=== PATIENT | male | born 1995 | race Caucasian/White ===

== ENCOUNTER 2016-11-02 09:40 | Inpatient (IN) | payer BC, OTHER ==
[2016-11-02 10:14] VITALS: BMI 26.3
[2016-11-02] MEDS ORDERED: MENTHOL/PHENOL 1 EACH UD MM PRN (10:52)
[2016-11-02] MEDS ORDERED: MAGNESIUM HYDROX 2400MG/30ML ORAL SUSPENSION 30 ML CUP PO PRN (10:52)
[2016-11-02] MEDS ORDERED: guaiFENesin/D-METHORPHAN HB 10 ML UNIT-DOSE CUPS PO PRN (10:52)
[2016-11-02] MEDS ORDERED: IBUPROFEN 400 MG TABLET (FP) PO PRN (10:52)
[2016-11-02] MEDS ORDERED: MAGNESIUM CITRATE 300 ML BOTTLE PO PRN (10:52)
[2016-11-02] MEDS ORDERED: MAG HYDROX/AL HYDROX/SIMETH 30 ML UNIT-DOSE CUP PO PRN (10:52)
[2016-11-02] MEDS ORDERED: LOPERAMIDE HCL 2 MG CAPSULE PO PRN (10:52)
[2016-11-02] MEDS ORDERED: ACETAMINOPHEN 325 MG TABLET (FP) PO PRN (10:52)
[2016-11-02] MEDS ORDERED: P-EPHED 60MG/TRIPROLIDI 2.5MG TABLET PO PRN (10:52)
[2016-11-02] MEDS ORDERED: INSULIN ASPART SQ PRN (10:57)
[2016-11-02] MEDS ORDERED: INSULIN SLIDING SCALE (NOVOLOG) 1 VIAL SQ SCH (11:00)
--- NOTE | 2016-11-02 11:07 | HP ---
COWS - Scale Resting Pulse: 1= [place] 81-100 Sweatin= Chills/Flushing Restless Observation: 1= Difficult to Sit Still Pupil Size: 1= Pupils >than Normal Bone or Joint Aches: 2= Severe Diffuse Aches Runny Nose/ Eye Tearin= Runny Nose/Eyes GI Upset > 30mins: 2= Nausea/Diarrhea Tremor Observation: 2= Slight Tremor Visible Yawning Observation: 1= 1-2x During Session Anxiety or Irritability: 2=Irritable/Anxious Goose Flesh Skin: 3=Piloerection COWS Score: 18 CIWA Score - CIWA Score Nausea/Vomitin Muscle Tremors: 4-Moderate,w/Arms Extend Anxiety: 3 Agitation: 4-Moderately Restless Paroxysmal Sweats: 3 Orientation: 0-Oriented Tacttile Disturbances: 0-None Auditory Disturbances: 0-None Visual Disturbances: 0-None Headache: 0-None Present CIWA-Ar Total Score: 17 Admission ROS BHS - HPI Chief Complaint: heroin and xanax withdrawal sx Allergies/Adverse Reactions: Allergies Allergy/AdvReac Type Severity Reaction Status Date / Time No Known Allergies Allergy Verified 11/02/16 10:10 History of Present Illness: 20 yo m recently , has been in detox/rehab before but not at [facility] x10 times last in january h/o opioid and benzodiazepine dependence not on meds , was on suboxone developed cravings on 16mg/day and relapsed 04/2016. Last heroin (sniffs) yesterday and xanax yesterday . no h/o seizures, no DTS - reports hallucinations when he stps his benzodiazepines/xanax in past. PMHx alcohol dependence, has not used since 2015, bipolar do, suicide attempts in past no suicidal ideation at present Exam Limitations: No Limitations - Ebola screening Have you traveled outside of the country in the last 21 days: No Have you had contact with anyone from an Ebola affected area: No Have you been sick,other than usual withdrawal symptoms: No - Review of Systems Constitutional: Chills, Diaphoresis, Loss of Appetite, Malaise, Night Sweats, Changes in sleep, Weakness, Unintentional Wgt. Loss EENT: reports: Nose Congestion Respiratory: reports: No Symptoms reported Cardiac: reports: No Symptoms Reported GI: reports: Constipated, Nausea, Poor Appetite, Poor Fluid Intake, Indigestion , Abdominal cramping : reports: No Symptoms Reported Musculoskeletal: reports: Back Pain, Joint Pain (withdrawal sx), Muscle Pain, Neck Pain Integumentary: reports: Flushing, Sweating Neuro: reports: Tremors, Weakness Endocrine: reports: No Symptoms Reported Hematology: reports: No Symptoms Reported Psychiatric: reports: Judgement Intact, Mood/Affect Appropiate, Orientated x3, Agitated, Anxious, Depressed Other Systems: Reviewed and Negative Patient History - Patient Medical History Hx Anemia: No Hx Asthma: No Hx Chronic Obstructive Pulmonary Disease (COPD): No Hx Cancer: No Hx Cardiac Disorders: No Hx Congestive Heart Failure: No Hx Hypertension: No Hx Hypercholesterolemia: No Hx Pacemaker: No HX Cerebrovascular Accident: No Hx Seizures: No Hx Dementia: No Hx Diabetes: Yes (IDDM) Hx Gastrointestinal Disorders: Yes (acid reflux) Hx Liver Disease: No Hx Genitourinary Disorders: No Hx Sexually Transmitted Disorders: No Hx Renal Disease (ESRD): No Hx Thyroid Disease: No Hx Human Immunodeficiency Virus (HIV): No Hx Hepatitis C: No Hx Depression: Yes Hx Suicide Attempt: Yes (cut left wrist in 2013, no s uicidal ideation at present) Hx Bipolar Disorder: Yes Hx Schizophrenia: No - Patient Surgical History Past Surgical History: Yes Hx Neurologic Surgery: No Hx Cataract Extraction: No Hx Cardiac Surgery: No Hx Lung Surgery: No Hx Breast Surgery: No Hx Breast Biopsy: No Hx Abdominal Surgery: Yes (insulin pump since age 8) Hx Appendectomy: No Hx Cholecystectomy: No Hx Genitourinary Surgery: No Hx Section: No Hx Orthopedic Surgery: No Hx Hysterectomy: No Anesthesia Reaction: No - PPD History Previous Implant?: Yes Implanted On Prior [facility] Admission?: No PPD to be Administered?: Yes - Reproductive History Patient is a Female of Child Bearing Age (11 -55 yrs old): No Patient : No - Smoking Cessation Smoking history: Current every day smoker Have you smoked in the past 12 months: Yes Aproximately how many cigarettes per day: 20 Hx Chewing Tobacco Use: No Initiated information on smoking cessation: Yes 'Breaking Loose' booklet given: 11/02/16 - Substance & Tx. History Hx Alcohol Use: Yes Hx Substance Use: Yes Substance Use Type: Alcohol, Heroin, Opiates, Prescribed, Tranquilizers Hx Substance Use Treatment: Yes (x10 , last time in january) - Substances Abused Heroin Route: Inhalation Frequency: Daily Amount used: 20-22 bags Age of first use: 16 Date of Last Use: 11/01/16 Xanax Route: Oral Frequency: Daily Amount used: 8-10 mg. Age of first use: 14 Date of Last Use: 11/01/16 Alcohol Route: Oral Frequency: No use in 30 days Amount used: 750ml spirits daily Age of first use: 12 Date of Last Use: 02/12/16 Family Disease History - Family Disease History Family History: Unremarkable Other Family History: uncle addictive disorder Admission Physical Exam S - Vital Signs Vital Signs: Vital Signs - 24 hr 11/02/16 10:10 Temperature 97.2 F L Pulse Rate 97 H Respiratory 20 Rate Blood Pressure 141/69 - Physical General Appearance: Yes: Nourished, Appropriately Dressed, Disheveled, Thin, Tremorous, Sweating, Anxious HEENTM: Yes: Hearing grossly Normal, Normocephalic, Normal Voice, CHERYL, Pharynx Normal, Nasal Congestion, Rhinorrhea Respiratory: Yes: Within Normal Limits, Chest Non-Tender, Lungs Clear, Normal Breath Sounds, No Respiratory Distress, No Accessory Muscle Use Neck: Yes: Within Normal Limits, No masses,lesions,Nodules, Supple, Trachea in good position Breast: Yes: Breast Exam Deferred Cardiology: Yes: Within Normal Limits, Regular Rhythm, Regular Rate, S1, S2 Abdominal: Yes: Normal Bowel Sounds, Non Tender, Flat, Soft, Increased Bowel Sounds, Other (insulin pump in place) Genitourinary: Yes: Within Normal Limits Back: Yes: Within Normal Limits, Normal Inspection Musculoskeletal: Yes: full range of Motion, Gait Steady, Pelvis Stable, Back pain (withdrawal sx), Muscle Pain Integumentary: Yes: Diaphoresis, Moist Lymphatic: Yes: Within Normal Limits - Addiitonal Findings: withdrawal sx - Diagnostic (1) Uncomplicated alcohol dependence Current Visit: Yes Status: Inactive (2) Opioid dependence with withdrawal Current Visit: Yes Status: Chronic (3) Sedative, hypnotic or anxiolytic dependence with withdrawal, uncomplicated Current Visit: Yes Status: Chronic (4) Nicotine dependence Current Visit: Yes Status: Acute (5) Insulin pump in place Current Visit: Yes Status: Chronic (6) Diabetes mellitus type 1 Current Visit: Yes Status: Chronic Qualifiers: Diabetes mellitus complication status: without complication Qualified Code(s): E10.9 - Type 1 diabetes mellitus without complications Cleared for Admission [facility] - Detox or Rehab [facility] Level of Care: Medically Managed Detox Regimen/Protocol: Methadone/Valium [facility] Breath Alcohol Content Breath Alcohol Content: 0 Urine Drug Screen - Results Drug Screen Negative: No Urine Drug Screen Results: OPI-Opiates
[2016-11-02] MEDS ORDERED: diazePAM 5 MG TABLET PO ONE (13:56)
[2016-11-02] MEDS ORDERED: METHADONE HCL 10 MG TABLET (FOR DETOX USE ONLY) PO ONE ×2 (13:57→23:00)
[2016-11-02] MEDS: diazePAM 5 MG TABLET PO SCH ×2 (14:55→22:15)
[2016-11-02] MEDS: NICOTINE 21 MG/24 HOURS TOPICAL PATCH TD SCH (14:56)
[2016-11-02] MEDS: diazePAM 5 MG TABLET PO PRN (19:12)
[2016-11-02] MEDS: NICOTINE POLACRILEX 4 MG GUM BUC PRN (20:13)
[2016-11-02] MEDS: hydrOXYzine PAMOATE 50 MG CAPSULE (FP) PO PRN (22:15)
[2016-11-02] MEDS: THIAMINE HCL 100 MG TABLET (FP) PO SCH (22:17)
[2016-11-02 23:34] LABS: URINE APPEARANCE CLEAR; URINE BILIRUBIN NEGATIVE (NEGATIVE); URINE BLOOD NEGATIVE (NEGATIVE); URINE COLOR LTYELLOW; URINE GLUCOSE (UA) 3+ (NEGATIVE); URINE KETONE NEGATIVE (NEGATIVE); URINE LEUK ESTERASE NEGATIVE (NEGATIVE); URINE NITRITE NEGATIVE (NEGATIVE); URINE PROTEIN NEGATIVE (NEGATIVE); URINE UROBILINOGEN NEGATIVE mg/dL (0.2-1.0)
[2016-11-03] MEDS: diazePAM 5 MG TABLET PO SCH ×3 (05:39→22:48)
[2016-11-03] MEDS: diazePAM 5 MG TABLET PO PRN ×2 (09:13→17:23)
[2016-11-03] MEDS: NICOTINE POLACRILEX 4 MG GUM BUC PRN ×2 (09:13→16:54)
[2016-11-03] MEDS ORDERED: METHADONE HCL 10 MG TABLET (FOR DETOX USE ONLY) PO SCH (10:00)
[2016-11-03 10:21] LABS: MCH 29.5 pg (25.7-33.7); MEAN CELL VOLUME 86.8 fl (80-96); PLATELET COUNT 310 K/MM3 (134-434); RDW 12.4 % (11.9-15.9); WHITE BLOOD COUNT 6.8 K/mm3 (4.0-10.0)
[2016-11-03] MEDS: cloNIDine HCL 0.1 MG TABLET PO SCH ×2 (10:58→22:48)
[2016-11-03] MEDS: CYCLOBENZAPRINE HCL 10 MG TABLET (FP) PO PRN (10:58)
[2016-11-03] MEDS: PRENATAL VITAMINS W/ FOLIC ACID TABLET (FP) PO SCH (10:58)
[2016-11-03] MEDS: NICOTINE 21 MG/24 HOURS TOPICAL PATCH TD SCH (10:59)
--- NOTE | 2016-11-03 11:02 | HP ---
Psychiatrist Admission - Data Date of interview: 11/03/16 Admission source: [facility] Identifying data: This is the first 6n admission for this 20 year old male, no children and unemployed , residing in [place]. Medical History: IDDM, acid reflux. Physical/Sexual Abuse/Trauma History: Denies history of abuse. Vital Signs: Vital Signs - 24 hr 11/02/16 11/02/16 11/02/16 14:39 17:04 21:31 Temperature 98 F 98.6 F 97.7 F Pulse Rate 79 74 84 Respiratory 18 18 20 Rate Blood Pressure 136/79 127/63 110/69 11/03/16 11/03/16 11/03/16 00:30 03:30 07:07 Temperature 97.3 F L Pulse Rate 75 Respiratory 18 18 18 Rate Blood Pressure 113/64 11/03/16 09:53 Temperature 98.1 F Pulse Rate 95 H Respiratory 20 Rate Blood Pressure 119/62 Allergies/Adverse Reactions: Allergies Allergy/AdvReac Type Severity Reaction Status Date / Time No Known Allergies Allergy Verified 11/02/16 10:10 Date of last physical exam: 11/02/16 Concur with the findings of this exam: Yes - Substance Abuse/Tx History Hx Alcohol Use: No Hx Substance Use: Yes Substance Use Type: Heroin (15 bags a day, started) Psychiatric Findings - Problem List ([place] 1, 2,3) (1) Bipolar disorder (manic depression) Current Visit: Yes Status: Acute (2) Bulimia Current Visit: Yes Status: Acute
--- NOTE | 2016-11-03 11:03 | CONSULT ---
[facility] Psychiatric Consult - Data Date of interview: 11/03/16 Admission source: [facility] Identifying data: This is the first 6n admission for this 20 year old male, no children and unemployed , residing in [place]. Substance Abuse History: Started heroin at age of 16, uses daily 20-22 bags, started xanax at age of 14, daily 8-10 mg. Medical History: IDDM, acid reflux Psychiatric History: 3 months ago)Patient reports was diagnosed with Bipolar disorder and Bulimia, [facility] psychiatric contact at age of 12, reports two psychiatric hospitalizations in [place](at age of 18) and [place] to address eating disorder and mood swings, sees in [facility] and currently on LAmictal 100 mg po daily, Prozac 400 mg po daily states he took these meds daily , and Gabapentin 600 mg po tid "not all the time." Physical/Sexual Abuse/Trauma History: Denies Additional Comment: Was in 10 different detox. treatments. Mental Status Exam - Mental Status Exam Alert and Oriented to: Time, Place, Person Cognitive Function: Good Patient Appearance: Well Groomed Mood: Anxious Affect: Appropriate, Mood Congruent Patient Behavior: Appropriate, Cooperative Speech Pattern: Clear, Appropriate Voice Loudness: Normal Thought Process: Intact, Goal Oriented Thought Disorder: Not Present Hallucinations: Denies Suicidal Ideation: Denies Homicidal Ideation: Denies Insight/Judgement: Fair Sleep: Fair Appetite: Fair Muscle strength/Tone: Normal Gait/Station: Normal Psychiatric Findings - Problem List ([place] 1, 2,3) (1) Bipolar disorder (manic depression) Current Visit: Yes Status: Acute (2) Bulimia Current Visit: Yes Status: Acute - Initial Treatment Plan Initial Treatment Plan: will continue Prozac 40 mg po daily, Lamictal 100 mg po daily, Gabapentin 400 mg po tid.
--- NOTE | 2016-11-03 11:08 | PN ---
[facility] CIWA - CIWA Score Nausea/Vomitin Muscle Tremors: 3 Anxiety: 3 Agitation: 2 Paroxysmal Sweats: 1-Minimal Palms Moist Orientation: 0-Oriented Tacttile Disturbances: 1-Very Mild Itch/Numbness Auditory Disturbances: 1-Very Mild Visual Disturbances: 0-None Headache: 2-Mild CIWA-Ar Total Score: 16 BHS COWS - Scale Resting Pulse: 0= [place] 80 or Below Sweatin= Chills/Flushing Restless Observation: 3= Extraneous Movement Pupil Size: 1= Pupils >than Normal Bone or Joint Aches: 2= Severe Diffuse Aches Runny Nose/ Eye Tearin= Runny Nose/Eyes GI Upset > 30mins: 3= Vomiting/Diarrhea Tremor Observation of Outstretched Hands: 2= Slight Tremor Visible Yawning Observation: 1= 1-2x During Session Anxiety or Irritability: 2=Irritable/Anxious Goose Flesh Skin: 0=Smooth Skin COWS Score: 17 [facility] Progress Note (SOAP) Subjective: alert,irritable,anxious,interrupted sleep,tremor,pain in the body and back, Objective: 11/03/16 11:05 Vital Signs Temperature 98.1 F 11/03/16 09:53 Pulse Rate 95 H 11/03/16 09:53 Respiratory Rate 20 11/03/16 09:53 Blood Pressure 119/62 11/03/16 09:53 O2 Sat by Pulse Oximetry (%) ekg nsr no chest pain,no sob,no dizziness Laboratory Last Values WBC 6.8 K/mm3 (4.0-10.0) 11/03/16 06:11 RBC 4.86 M/mm3 (4.00-5.60) 11/03/16 06:11 Hgb 14.3 GM/dL (11.7-16.9) 11/03/16 06:11 Hct 42.2 % (35.4-49) 11/03/16 06:11 MCV 86.8 fl (80-96) 11/03/16 06:11 MCH 29.5 pg (25.7-33.7) 11/03/16 06:11 MCHC 34.0 g/dl (32.0-35.9) 11/03/16 06:11 RDW 12.4 % (11.9-15.9) 11/03/16 06:11 Plt Count 310 K/MM3 (134-434) 11/03/16 06:11 MPV 10.0 fl (7.5-11.1) 11/03/16 06:11 POC Glucometer 380 UNITS (()) 11/03/16 07:44 Urine Color Ltyellow 11/02/16 15:44 Urine Appearance Clear 11/02/16 15:44 Urine pH 7.0 (5.0-8.0) 11/02/16 15:44 Ur Specific [place] 1.020 (1.005-1.025) 11/02/16 15:44 Urine Protein Negative (NEGATIVE) 11/02/16 15:44 Urine Glucose (UA) 3+ (NEGATIVE) H 11/02/16 15:44 Urine Ketones Negative (NEGATIVE) 11/02/16 15:44 Urine Blood Negative (NEGATIVE) 11/02/16 15:44 Urine Nitrite Negative (NEGATIVE) 11/02/16 15:44 Urine Bilirubin Negative (NEGATIVE) 11/02/16 15:44 Urine Urobilinogen Negative mg/dL (0.2-1.0) 11/02/16 15:44 Hepatitis C Antibody 0.1 s/co ratio (0.0-0.9) 11/02/16 12:00 labs pending Assessment: 11/03/16 11:08 withdrawal symptom Plan: continue detox,on insulin pump,bgm monitoring
[2016-11-03] MEDS: FLUoxetine HCL 20 MG CAPSULE (FP) PO SCH (11:24)
[2016-11-03] MEDS: lamoTRIgine 100 MG TABLET (FP) PO SCH (11:24)
[2016-11-03 11:35] LABS: ALBUMIN 4.3 g/dl (3.4-5.0); ALK PHOS 111 U/L (45-117); ANION GAP 11 (8-16); BILIRUBIN,TOTAL 0.5 mg/dL (0.2-1.0); CALCIUM 9.6 mg/dL (8.5-10.1); CO2 28 mmol/L (21-32); CREATININE 0.8 mg/dL (0.7-1.3); GLUCOSE,RANDOM 292 mg/dL (74-106); SGOT/AST 15 U/L (15-37); SGPT/ALT 15 U/L (12-78); TOT PROT 7.7 g/dl (6.4-8.2)
[2016-11-03 12:43] LABS: SICKLE CELL SCREEN NEGATIVE (NEGATIVE)
[2016-11-03] MEDS: GABAPENTIN 400 MG CAPSULE (FP) PO SCH ×2 (13:59→22:47)
[2016-11-03] MEDS: hydrOXYzine PAMOATE 50 MG CAPSULE (FP) PO PRN (20:34)
[2016-11-03] MEDS: THIAMINE HCL 100 MG TABLET (FP) PO SCH (22:48)
[2016-11-04] MEDS: GABAPENTIN 400 MG CAPSULE (FP) PO SCH ×2 (05:31→12:59)
[2016-11-04] MEDS: diazePAM 5 MG TABLET PO PRN ×3 (06:08→16:57)
--- NOTE | 2016-11-04 09:51 | EKG ---
Test Reason : Blood Pressure : / mmHG Vent. Rate : 072 BPM Atrial Rate : 072 BPM P-R Int : 168 ms QRS Dur : 088 ms QT Int : 380 ms P-R-T Axes : 049 071 048 degrees QTc Int : 416 ms NORMAL SINUS RHYTHM POSSIBLE LEFT ATRIAL ENLARGEMENT BORDERLINE ECG NO PREVIOUS ECGS AVAILABLE Confirmed by MD RUBI, GAMA ([id number]) on 11/04/2016 9:51:24 AM Referred By: Confirmed By:GAMA VENEGAS MD
[2016-11-04] MEDS: cloNIDine HCL 0.1 MG TABLET PO SCH ×2 (10:36→22:36)
[2016-11-04] MEDS: FLUoxetine HCL 20 MG CAPSULE (FP) PO SCH (10:36)
[2016-11-04] MEDS: PRENATAL VITAMINS W/ FOLIC ACID TABLET (FP) PO SCH (10:36)
[2016-11-04] MEDS: lamoTRIgine 100 MG TABLET (FP) PO SCH (10:37)
[2016-11-04] MEDS: METHADONE HCL 5 MG TABLET (FOR DETOX USE ONLY) PO SCH (10:37)
[2016-11-04] MEDS: NICOTINE 21 MG/24 HOURS TOPICAL PATCH TD SCH (10:37)
[2016-11-04] MEDS: diazePAM 5 MG TABLET PO SCH ×2 (10:37→22:36)
[2016-11-04] MEDS: NICOTINE POLACRILEX 4 MG GUM BUC PRN ×2 (10:39→12:58)
[2016-11-04] MEDS: CYCLOBENZAPRINE HCL 10 MG TABLET (FP) PO PRN ×2 (11:14→22:43)
--- NOTE | 2016-11-04 13:03 | PN ---
S CIWA - CIWA Score Nausea/Vomitin Muscle Tremors: 3 Anxiety: 3 Agitation: 2 Paroxysmal Sweats: 1-Minimal Palms Moist Orientation: 0-Oriented Tacttile Disturbances: 1-Very Mild Itch/Numbness Auditory Disturbances: 1-Very Mild Visual Disturbances: 1-Very Mild Sensitivity Headache: 2-Mild CIWA-Ar Total Score: 17 BHS COWS - Scale Resting Pulse: 2= [place] 101-120 Sweatin= Chills/Flushing Restless Observation: 3= Extraneous Movement Pupil Size: 1= Pupils >than Normal Bone or Joint Aches: 2= Severe Diffuse Aches Runny Nose/ Eye Tearin= Runny Nose/Eyes GI Upset > 30mins: 3= Vomiting/Diarrhea Tremor Observation of Outstretched Hands: 2= Slight Tremor Visible Yawning Observation: 1= 1-2x During Session Anxiety or Irritability: 2=Irritable/Anxious Goose Flesh Skin: 0=Smooth Skin COWS Score: 19 S Progress Note (SOAP) Subjective: alert,irritable,anxious,interrupted sleep,pain in the body and back Objective: 11/04/16 13:01 Vital Signs Temperature 96.6 F L 11/04/16 11:01 Pulse Rate 105 H 11/04/16 11:01 Respiratory Rate 18 11/04/16 11:01 Blood Pressure 112/72 11/04/16 11:01 O2 Sat by Pulse Oximetry (%) Laboratory Last Values WBC 6.8 K/mm3 (4.0-10.0) 11/03/16 06:11 RBC 4.86 M/mm3 (4.00-5.60) 11/03/16 06:11 Hgb 14.3 GM/dL (11.7-16.9) 11/03/16 06:11 Hct 42.2 % (35.4-49) 11/03/16 06:11 MCV 86.8 fl (80-96) 11/03/16 06:11 MCH 29.5 pg (25.7-33.7) 11/03/16 06:11 MCHC 34.0 g/dl (32.0-35.9) 11/03/16 06:11 RDW 12.4 % (11.9-15.9) 11/03/16 06:11 Plt Count 310 K/MM3 (134-434) 11/03/16 06:11 MPV 10.0 fl (7.5-11.1) 11/03/16 06:11 Sickle Cell Screen Negative (NEGATIVE) 11/03/16 06:11 Sodium 140 mmol/L (136-145) 11/03/16 06:11 Potassium 4.0 mmol/L (3.5-5.1) 11/03/16 06:11 Chloride 101 mmol/L (98-107) 11/03/16 06:11 Carbon Dioxide 28 mmol/L (21-32) 11/03/16 06:11 Anion Gap 11 (8-16) 11/03/16 06:11 BUN 6 mg/dL (7-18) L 11/03/16 06:11 Creatinine 0.8 mg/dL (0.7-1.3) 11/03/16 06:11 Creat Clearance w eGFR > 60 (>60) 11/03/16 06:11 POC Glucometer 364 UNITS (()) 11/04/16 11:20 Random Glucose 292 mg/dL (74-106) H 11/03/16 06:11 Calcium 9.6 mg/dL (8.5-10.1) 11/03/16 06:11 Total Bilirubin 0.5 mg/dL (0.2-1.0) 11/03/16 06:11 AST 15 U/L (15-37) 11/03/16 06:11 ALT 15 U/L (12-78) 11/03/16 06:11 Alkaline Phosphatase 111 U/L (45-117) 11/03/16 06:11 Total Protein 7.7 g/dl (6.4-8.2) 11/03/16 06:11 Albumin 4.3 g/dl (3.4-5.0) 11/03/16 06:11 Urine Color Ltyellow 11/02/16 15:44 Urine Appearance Clear 11/02/16 15:44 Urine pH 7.0 (5.0-8.0) 11/02/16 15:44 Ur Specific [place] 1.020 (1.005-1.025) 11/02/16 15:44 Urine Protein Negative (NEGATIVE) 11/02/16 15:44 Urine Glucose (UA) 3+ (NEGATIVE) H 11/02/16 15:44 Urine Ketones Negative (NEGATIVE) 11/02/16 15:44 Urine Blood Negative (NEGATIVE) 11/02/16 15:44 Urine Nitrite Negative (NEGATIVE) 11/02/16 15:44 Urine Bilirubin Negative (NEGATIVE) 11/02/16 15:44 Urine Urobilinogen Negative mg/dL (0.2-1.0) 11/02/16 15:44 RPR Titer Nonreactive (NONREACTIVE) 11/03/16 06:11 Hepatitis C Antibody 0.1 s/co ratio (0.0-0.9) 11/02/16 12:00 Assessment: 11/04/16 13:02 withdrawal symptom Plan: continue detox,bgm monitoring with insulin coverage insulin infusion pump
[2016-11-04] MEDS: GABAPENTIN 300 MG CAPSULE (FP) PO SCH ×2 (14:10→22:35)
[2016-11-04] MEDS: hydrOXYzine PAMOATE 50 MG CAPSULE (FP) PO PRN (14:10)
[2016-11-04] MEDS: THIAMINE HCL 100 MG TABLET (FP) PO SCH (22:35)
[2016-11-05] MEDS: GABAPENTIN 300 MG CAPSULE (FP) PO SCH ×3 (05:42→22:34)
[2016-11-05] MEDS: NICOTINE POLACRILEX 4 MG GUM BUC PRN ×5 (05:43→20:05)
[2016-11-05] MEDS: diazePAM 5 MG TABLET PO PRN (07:55)
--- NOTE | 2016-11-05 09:38 | PN ---
BHS Progress Note (SOAP) Subjective: ALERT,IRRITABLE,ANXIOUS,INTERRUPTED SLEEP,PAIN IN THE BODY Objective: 11/05/16 09:36 Vital Signs Temperature 97.2 F L 11/05/16 06:00 Pulse Rate 69 11/05/16 06:00 Respiratory Rate 18 11/05/16 06:00 Blood Pressure 118/69 11/05/16 06:00 O2 Sat by Pulse Oximetry (%) 11/05/16 09:36 BGM 351 Assessment: 11/05/16 09:36 WITHDRAWAL SYMPTOM Plan: CONTINUE DETOX,BGM MONITORING,CONTINUE INSULIN
[2016-11-05] MEDS: PRENATAL VITAMINS W/ FOLIC ACID TABLET (FP) PO SCH (10:55)
[2016-11-05] MEDS: lamoTRIgine 100 MG TABLET (FP) PO SCH (10:55)
[2016-11-05] MEDS: FLUoxetine HCL 20 MG CAPSULE (FP) PO SCH (10:55)
[2016-11-05] MEDS: cloNIDine HCL 0.1 MG TABLET PO SCH ×2 (10:55→22:35)
[2016-11-05] MEDS: METHADONE HCL 5 MG TABLET (FOR DETOX USE ONLY) PO SCH (10:56)
[2016-11-05] MEDS: NICOTINE 21 MG/24 HOURS TOPICAL PATCH TD SCH (10:56)
[2016-11-05] MEDS: diazePAM 5 MG TABLET PO SCH ×2 (10:57→22:35)
[2016-11-05] MEDS: CYCLOBENZAPRINE HCL 10 MG TABLET (FP) PO PRN ×2 (11:33→20:04)
[2016-11-05] MEDS: hydrOXYzine PAMOATE 50 MG CAPSULE (FP) PO PRN (12:28)
[2016-11-05] MEDS: THIAMINE HCL 100 MG TABLET (FP) PO SCH (22:35)
[2016-11-06] MEDS: GABAPENTIN 300 MG CAPSULE (FP) PO SCH ×3 (06:18→22:39)
[2016-11-06] MEDS: CYCLOBENZAPRINE HCL 10 MG TABLET (FP) PO PRN ×2 (06:21→15:34)
[2016-11-06] MEDS: hydrOXYzine PAMOATE 50 MG CAPSULE (FP) PO PRN ×2 (06:21→15:37)
[2016-11-06] MEDS ORDERED: METHADONE HCL 10 MG TABLET (FOR DETOX USE ONLY) PO SCH (10:00)
[2016-11-06] MEDS ORDERED: diazePAM 5 MG TABLET PO SCH (10:00)
--- NOTE | 2016-11-06 10:37 | PN ---
S Progress Note (SOAP) Subjective: ALERT,IRRITABLE,ANXIOUS,INTERRUPTED SLEEP,TREMOR Objective: 11/06/16 10:35 Vital Signs Temperature 97.1 F L 11/06/16 10:00 Pulse Rate 110 H 11/06/16 10:00 Respiratory Rate 20 11/06/16 10:00 Blood Pressure 121/58 11/06/16 10:00 O2 Sat by Pulse Oximetry (%) Assessment: 11/06/16 10:35 WITHDRAWAL SYMPTOM Plan: CONTINUE DETOX,INSULIN COVERAGE,DISCHARGE IN AM
[2016-11-06] MEDS: cloNIDine HCL 0.1 MG TABLET PO SCH ×2 (10:49→22:38)
[2016-11-06] MEDS: PRENATAL VITAMINS W/ FOLIC ACID TABLET (FP) PO SCH (10:49)
[2016-11-06] MEDS: FLUoxetine HCL 20 MG CAPSULE (FP) PO SCH (10:49)
[2016-11-06] MEDS: lamoTRIgine 100 MG TABLET (FP) PO SCH (10:49)
[2016-11-06] MEDS: NICOTINE 21 MG/24 HOURS TOPICAL PATCH TD SCH (10:50)
[2016-11-06] MEDS: NICOTINE POLACRILEX 4 MG GUM BUC PRN ×3 (12:43→22:41)
[2016-11-06] MEDS: diphenhydrAMINE HCL 50 MG CAPSULE PO PRN (22:39)
[2016-11-06] MEDS: THIAMINE HCL 100 MG TABLET (FP) PO SCH (22:39)
[2016-11-07] MEDS: diphenhydrAMINE HCL 50 MG CAPSULE PO PRN (02:00)
[2016-11-07] MEDS: GABAPENTIN 300 MG CAPSULE (FP) PO SCH (05:50)
[2016-11-07] MEDS: hydrOXYzine PAMOATE 50 MG CAPSULE (FP) PO PRN (05:53)
[2016-11-07] MEDS: CYCLOBENZAPRINE HCL 10 MG TABLET (FP) PO PRN (05:53)
[2016-11-07] MEDS: NICOTINE POLACRILEX 4 MG GUM BUC PRN (05:54)
[2016-11-07] MEDS ORDERED: METHADONE HCL 5 MG TABLET (FOR DETOX USE ONLY) PO SCH (06:00)
[2016-11-07 06:47] VITALS: BP 149/62; PULSE 75; TEMP 96.1
--- NOTE | 2016-11-07 08:34 | DS ---
[facility] Detox Discharge Summary Admission Date: 11/02/16 Discharge Date: 11/07/16 - History Present History: Alcohol Dependence, Opioid Dependence, Sedative Dependence Pertinent Past History: bipolar do, bulimia, nicotine dependence, DM 1, insulin pump, alcohol dependence but has not been drinking recently - Physical Exam Results Vital Signs: Vital Signs Temperature 96.1 F L 11/07/16 06:46 Pulse Rate 75 11/07/16 06:46 Respiratory Rate 18 11/07/16 06:46 Blood Pressure 149/62 11/07/16 06:46 O2 Sat by Pulse Oximetry (%) - Treatment Hospital Course: Detox Protocol Followed, Detoxed Safely, Responded well, Discharged Condition Good, Rehab Referral Accepted Patient has Accepted a Rehab Referral to: Yes - Medication Discharge Medications: Ambulatory Orders Fluoxetine HCl [Prozac -] 40 mg PO DAILY 11/02/16 Lamotrigine [Lamictal] 100 mg PO DAILY 11/02/16 Fluoxetine HCl [Prozac -] 40 mg PO DAILY #30 tab 11/03/16 Gabapentin [Neurontin -] 400 mg PO TID #90 tab 11/03/16 Lamotrigine [LaMICtal -] 100 mg PO DAILY #30 tablet 11/03/16 Insulin (Novolog) [Novolog] 0 units SQ PRN PRN 30 Days 11/07/16 - Diagnosis (1) Opioid dependence with withdrawal Current Visit: Yes Status: Chronic (2) Sedative, hypnotic or anxiolytic dependence with withdrawal, uncomplicated Current Visit: Yes Status: Chronic (3) Nicotine dependence Current Visit: Yes Status: Chronic (4) Insulin pump in place Current Visit: Yes Status: Chronic (5) Diabetes mellitus type 1 Current Visit: Yes Status: Chronic Qualifiers: Diabetes mellitus complication status: without complication Qualified Code(s): E10.9 - Type 1 diabetes mellitus without complications (6) Bipolar disorder (manic depression) Current Visit: Yes Status: Chronic (7) Bulimia Current Visit: Yes Status: Chronic - AMA Did Patient Leave Against Medical Advice: No
[2016-11-07] MEDS: lamoTRIgine 100 MG TABLET (FP) PO SCH (09:19)
[2016-11-07] MEDS: FLUoxetine HCL 20 MG CAPSULE (FP) PO SCH (09:19)
[2016-11-07] MEDS: PRENATAL VITAMINS W/ FOLIC ACID TABLET (FP) PO SCH (09:19)
[2016-11-07] MEDS: cloNIDine HCL 0.1 MG TABLET PO SCH (09:19)
== END 2016-11-07 09:37 | disposition home or self-care (01) | DRG 897 ==
LOC: YASAS 09:40 → Y6N 13:09
PROVIDERS: ADMIT Internal Medicine; ATTEND Internal Medicine
PROC: HZ2ZZZZ Detoxification Services for Substance Abuse Treatment (ICD-10-PCS; principal; 2016-11-02)
DX: F11.23 Opioid dependence with withdrawal (principal); F50.2 Bulimia nervosa; F13.230 Sedative, hypnotic or anxiolytic dependence with withdrawal, uncomplicated; F10.20 Alcohol dependence, uncomplicated; F17.210 Nicotine dependence, cigarettes, uncomplicated; F31.9 Bipolar disorder, unspecified; E10.9 Type 1 diabetes mellitus without complications; Z96.41 Presence of insulin pump (external) (internal); Z79.4 Long term (current) use of insulin; K21.9 Gastro-esophageal reflux disease without esophagitis; Z91.5 Personal history of self-harm
CPT/HCPCS: 36415; 80053; 81003; 85027; 85660; 86593; 86803; 93005; 93010